=== PATIENT | male | born 1960 | race Caucasian/White ===

== ENCOUNTER 2018-12-15 00:08 | Emergency (ER) | payer MEDICAID ==
[~2018-12-15] VITALS: Ht 162.6 cm; Wt 122.0 kg
[2018-12-15 00:12] VITALS: BP 158/107
[2018-12-15] MEDS ORDERED: amox tr/potassium clavulanate 875/125mg TAB PO ONE (00:35)
[2018-12-15] MEDS ORDERED: HYDROcodone/acetaminophen 5mg/325mg tablet PO ONE (00:35)
[2018-12-15] MEDS ORDERED: TETanus/Pertussis (Acell)/Diphther VAC/PF (Tdap-Adult) 0.5ml syringe IM ONE (00:40)
[2018-12-15] MEDS ORDERED: ibuprofen tablet 400 MG TABLET PO STA (00:42)
[2018-12-15] MEDS ORDERED: LIDOcaine 1% w/epiNEPHrine 1:200,000 30ml vial IM ONE (01:55)
[2018-12-15] MEDS ORDERED: AMOX-422 PO (02:40)
== END 2018-12-15 03:06 | disposition home or self-care (01) ==
LOC: ER 00:09
DX: S61.512A Laceration without foreign body of left wrist, initial encounter (principal); Z79.2 Long term (current) use of antibiotics; W54.0XXA Bitten by dog, initial encounter; Y93.89 Activity, other specified; Y92.89 Other specified places as the place of occurrence of the external cause; Y99.8 Other external cause status
CPT/HCPCS: 12001; 73110; 90471; 99283

== ENCOUNTER 2019-05-10 10:12 | Emergency (ER) | payer MEDICAID ==
[~2019-05-10] VITALS: Ht 167.6 cm; Wt 118.0 kg
[2019-05-10 11:12] VITALS: BP 156/114
== END 2019-05-10 11:11 | disposition home or self-care (01) ==
LOC: ER 10:14
DX: R07.89 Other chest pain (principal); G89.29 Other chronic pain; M54.5 Low back pain
CPT/HCPCS: 93005; 99283

== ENCOUNTER 2021-02-14 09:04 | Inpatient (IN) | payer BC, MEDICAID ==
[2021-02-14] VITALS (10 sets, daily range): BP systolic 126–173; BP diastolic 55–93
[~2021-02-14] VITALS: Ht 165.1 cm; Wt 109.0 kg
[2021-02-14 10:20] LABS: BASOPHILS # (AUTO) 0.1 X10'3 (0-0.2); MEAN PLATELET VOLUME 6.7 FL (7.4-10.4); MONOCYTES # (AUTO) 0.5 X10'3 (0-0.9); NEUTROPHILS # (AUTO) 6.6 X10'3 (1.8-7.7)
[2021-02-14 10:21] LABS: BASOPHILS % (AUTO) 1.1 % (0-1); EOSINOPHILS % (AUTO) 0.4 % (0-6); LYMPHOCYTES # (AUTO) 1.1 X10'3 (1.1-4.8); LYMPHOCYTES % (AUTO) 12.9 % (21-51); MEAN CORPUSCULAR HEMOGLOBIN 15.8 PG (27.0-31.0); MEAN CORPUSCULAR VOLUME 56.5 FL (78-98); MONOCYTES % (AUTO) 5.9 % (2-12); NEUTROPHILS % (AUTO) 79.7 % (42-75); PLATELET COUNT 639 X10'3 (140-440); RED BLOOD COUNT 3.68 X10'6 (4.70-6.10); RED CELL DISTRIBUTION WIDTH 18.5 % (11.5-14.5); WHITE BLOOD COUNT 8.3 X10'3 (4.5-11.0)
[2021-02-14 10:31] LABS: ALANINE AMINOTRANSFERASE 21 U/L (12-78); ALBUMIN 3.8 G/DL (3.4-5.0); ALBUMIN/GLOBULIN RATIO 0.9 (1.1-1.5); ALKALINE PHOSPHATASE 107 IU/L (46-116); ANION GAP 11 (8-16); ASPARTATE AMINO TRANSFERASE 23 U/L (10-37); BILIRUBIN,TOTAL 0.6 MG/DL (0.1-1.0); BLOOD UREA NITROGEN 13 MG/DL (7-18); BUN/CREATININE RATIO 13.4 (5.4-32.0); CALCIUM 8.7 MG/DL (8.5-10.1); CHLORIDE 102 MMOL/L (99-107); CREATININE 0.97 MG/DL (0.60-1.10); GLUCOSE 124 MG/DL (70-104); POTASSIUM 4.1 MMOL/L (3.5-5.1); SODIUM 139 MMOL/L (135-145); eGFR 79 ML/MIN
[2021-02-14 10:36] LABS: HEMATOCRIT 20.8 % (42.0-52.0); HEMOGLOBIN 5.8 g/dl (14.0-17.9)
[2021-02-14 11:09] LABS: PARTIAL THROMBOPLASTIN TIME 24 SECONDS (22-32)
[2021-02-14 11:25] LABS: PLATELET ESTIMATE INCREASED
[2021-02-14 11:26] LABS: ANISOCYTOSIS 2+; HYPOCHROMASIA 3+; MICROCYTOSIS 3+
[2021-02-14 11:27] LABS: ELLIPTOCYTES 2+; POLYCHROMASIA 1+; SCHISTOCYTES 1+
[2021-02-14] MEDS ORDERED: pantoprazole 40 MG vial IV ONE (11:35)
[2021-02-14] MEDS ORDERED: mag hydrox/Alum hydrox/simeth 30ml oral suspension PO PRN (11:45)
[2021-02-14] MEDS ORDERED: morphine 2 MG/ML inj. syringe IV PRN (11:45)
[2021-02-14] MEDS ORDERED: acetaminophen 325mg tablet PO PRN (11:45)
[2021-02-14] MEDS ORDERED: magnesium hydroxide 30ml (MOM) UD suspension PO PRN (11:45)
[2021-02-14] MEDS ORDERED: ondansetron/PF 4mg/2ml inj IV PRN (11:45)
[2021-02-14] MEDS ORDERED: PEG 3350/Na sulf,bicarb,Cl/KCl oral sol 4 liter bottle PO ONE (11:55)
[2021-02-14] MEDS ORDERED: buprenorphine/naloxone 8MG-2MG SUBlingual film SL SCH (12:25)
[2021-02-14] MEDS ORDERED: buprenorphine/naloxone 8MG-2MG SUBlingual film SL ONE (12:25)
[2021-02-14] MEDS ORDERED: BUPR1FIL3 SL (12:59)
[2021-02-14] MEDS ORDERED: QUET100T34 PO (12:59)
[2021-02-14 13:02] LABS: HEMOGLOBIN A1C 6.1 % (4.5-6.2)
[2021-02-14] MEDS: buprenorphine/naloxone 8MG-2MG SUBlingual film SL SCH (13:45)
[2021-02-14 15:03] LABS: CLARITY,URINE CLEAR (Clear); COLOR,URINE STRAW (Yellow); UA COLLECTION TYPE NON-SPECIFIED
[2021-02-14 15:04] LABS: GLUCOSE, URINE NEGATIVE (Neg); KETONES,URINE NEGATIVE (Neg); LEUKOCYTE ESTERASE ,URINE NEGATIVE (Neg); NITRITES, URINE NEGATIVE (Neg); OCCULT BLOOD,URINE NEGATIVE (Neg); PROTEIN,URINE NEGATIVE (Neg); UROBILINOGEN,URINE 0.2 E.U/dL (0.2-1.0)
[2021-02-14] MEDS ORDERED: AMOX500C4 PO (15:22)
--- NOTE | 2021-02-14 15:54 | NUR ---
per [facility], PT NEEDS TO FINISH PREP BY 8-9 AM TOMORROW MORNING 02/15. PT WILL CONTINUE TO BE NPO BUT CAN HAVE A LITTLE BIT OF CLEAR LIQUIDS THIS EVENING.
[2021-02-14] MEDS: dextrose 5%-1/2 normal saline 1,000 ML IV SCH ×2 (16:59→23:39)
--- NOTE | 2021-02-14 17:12 | NUR ---
PATIENT'S LEG SHAKING, STATES "I DON'T KNOW WHY MY LEG IS SHAKING" PATIENT STATES HE MIGHT BE FEELING ANXIOUS AND WOULD BENEFIT FROM ANTI ANXIETY MEDICATION. PAGE SENT TO DR HURD.
[2021-02-14] MEDS ORDERED: LORazepam 0.5 MG tablet PO PRN (17:50)
[2021-02-14 18:02] LABS: URINE AMPHETAMINE SCREEN NEGATIVE (Neg); URINE BARBITUATE SCREEN NEGATIVE (Neg); URINE BENZODIAZEPINES SCREEN NEGATIVE (Neg); URINE CANNABINOID SCREEN NEGATIVE (Neg); URINE COCAINE SCREEN NEGATIVE (Neg); URINE METHADONE SCREEN NEGATIVE (Neg); URINE OPIATE SCREEN NEGATIVE (Neg); URINE PHENCYCLIDINE SCREEN NEGATIVE (Neg)
[2021-02-14 19:17] LABS: HEMATOCRIT 23.1 % (42.0-52.0); MEAN CORPUSCULAR HEMOGLOBIN 18.5 PG (27.0-31.0); MEAN CORPUSCULAR HGB CONC 30.2 g/dL (33.0-36.5); MEAN CORPUSCULAR VOLUME 61.3 FL (78-98); MEAN PLATELET VOLUME 6.7 FL (7.4-10.4); PLATELET COUNT 536 X10'3 (140-440); RED BLOOD COUNT 3.76 X10'6 (4.70-6.10); RED CELL DISTRIBUTION WIDTH 24.3 % (11.5-14.5); WHITE BLOOD COUNT 7.9 X10'3 (4.5-11.0)
[2021-02-14] MEDS: docusate sod 100mg capsule PO SCH (20:00)
[2021-02-14] MEDS: pantoprazole 40 MG vial IV SCH (22:14)
[2021-02-15] MEDS ORDERED: QUET50TA24 PO (00:56)
[2021-02-15] MEDS: QUEtiapine 25mg tablet PO PRN ×2 (01:21→20:02)
--- NOTE | 2021-02-15 02:31 | NUR ---
CLEANED PT COMMODE AND MEDICATED PT FOR SLEEP. PT IN STABLE CONDITION AND A&OX4 RESTING IN BED NOW.
[2021-02-15 02:55] LABS: BASOPHILS # (AUTO) 0.1 X10'3 (0-0.2); EOSINOPHILS # (AUTO) 0.1 X10'3 (0-0.9); EOSINOPHILS % (AUTO) 0.6 % (0-6); HEMATOCRIT 22.7 % (42.0-52.0); LYMPHOCYTES % (AUTO) 13.1 % (21-51); MEAN CORPUSCULAR HEMOGLOBIN 19.5 PG (27.0-31.0); MEAN CORPUSCULAR HGB CONC 30.6 g/dL (33.0-36.5); MEAN CORPUSCULAR VOLUME 63.8 FL (78-98); MEAN PLATELET VOLUME 6.5 FL (7.4-10.4); MONOCYTES # (AUTO) 0.6 X10'3 (0-0.9); NEUTROPHILS # (AUTO) 6.1 X10'3 (1.8-7.7); NEUTROPHILS % (AUTO) 77.3 % (42-75); PLATELET COUNT 447 X10'3 (140-440); RED BLOOD COUNT 3.56 X10'6 (4.70-6.10); RED CELL DISTRIBUTION WIDTH 28.4 % (11.5-14.5); WHITE BLOOD COUNT 7.9 X10'3 (4.5-11.0)
[2021-02-15 03:23] LABS: ALANINE AMINOTRANSFERASE 14 U/L (12-78); ALBUMIN 3.1 G/DL (3.4-5.0); ALBUMIN/GLOBULIN RATIO 0.9 (1.1-1.5); ALKALINE PHOSPHATASE 88 IU/L (46-116); ANION GAP 8 (8-16); ASPARTATE AMINO TRANSFERASE 16 U/L (10-37); BILIRUBIN,TOTAL 0.7 MG/DL (0.1-1.0); BLOOD UREA NITROGEN 10 MG/DL (7-18); BUN/CREATININE RATIO 10.8 (5.4-32.0); CHLORIDE 107 MMOL/L (99-107); CHOL/HDL RATIO 4.1 (0.00-4.99); CHOLESTEROL 159 MG/DL (0-200); CREATININE 0.93 MG/DL (0.60-1.10); FERRITIN 4 NG/ML (26-388); GLUCOSE 119 MG/DL (70-104); HDL CHOLESTEROL 39 MG/DL (35-60); LDL CHOLESTEROL 101 MG/DL (50-100); POTASSIUM 3.6 MMOL/L (3.5-5.1); SODIUM 143 MMOL/L (135-145); TOTAL CARBON DIOXIDE 27.8 MMOL/L (24-32); TOTAL PROTEIN 6.4 G/DL (6.4-8.2); TRIGLYCERIDES 105 MG/DL (20-135); eGFR 83 ML/MIN
[2021-02-15 03:42] LABS: % IRON SATURATION 5 % (11-46); IRON 19 UG/DL (53-167); TOTAL IRON BINDING CAPACITY 405 UG/DL (259-388)
[2021-02-15 05:52] LABS: PLATELET ESTIMATE INCREASED
[2021-02-15 05:53] LABS: ANISOCYTOSIS 3+; ELLIPTOCYTES 2+; MICROCYTOSIS 2+
[2021-02-15 05:54] LABS: GIANT PLATELET FEW; HYPOCHROMASIA 1+; TEAR DROP CELLS FEW
[2021-02-15 05:55] LABS: SCHISTOCYTES FEW
[2021-02-15] MEDS: docusate sod 100mg capsule PO SCH ×2 (08:00→20:00)
[2021-02-15] MEDS: dextrose 5%-1/2 normal saline 1,000 ML IV SCH ×2 (08:44→17:53)
--- NOTE | 2021-02-15 08:56 | NUR ---
call from [facility] states patient to get colonoscopy at approx 1030 this AM.
[2021-02-15 09:49] VITALS: BP 144/89
[2021-02-15] MEDS: pantoprazole 40 MG vial IV SCH ×3 (09:49→20:02)
[2021-02-15] MEDS: buprenorphine/naloxone 8MG-2MG SUBlingual film SL SCH ×2 (09:51→12:12)
--- NOTE | 2021-02-15 09:51 | NUR ---
patient to GI lab at this time via [facility]. Awake alert, no signs of distress noted.
[2021-02-15] MEDS ORDERED: fentaNYL/PF 50MCG/1 ML 2ML syringe ONE (09:56)
[2021-02-15] MEDS ORDERED: MIDAZolam 1 MG/ML 5ML VIAL ONE (09:57)
[2021-02-15 10:55] VITALS: BP 139/61
[2021-02-15 11:05] VITALS: BP 145/95
[2021-02-15 11:15] VITALS: BP 153/87
[2021-02-15 11:25] VITALS: BP 149/81
--- NOTE | 2021-02-15 11:50 | NUR ---
PATIENT BACK FROM GI LAB AT THIS TIME. REQUESTING SUBOXONE (SEE EMAR). ALL SAFETY MEASURES IN PLACE, VSS.
[2021-02-15] MEDS ORDERED: PEG 3350/Na sulf,bicarb,Cl/KCl oral sol 4 liter bottle PO ONE (11:55)
--- NOTE | 2021-02-15 23:06 | NUR ---
notified PAGER ID: [phone] MESSAGE: [phone] Zan Zepeda: pt is complaining of headache 12/21 Seroquel &Tylenol both not effective. hx of severe anxiety. Requesting something for sleep and pain. thank you Desiree [phone]
[2021-02-15] MEDS ORDERED: traMADol 50MG tablet PO ONE (23:10)
[2021-02-16] VITALS (14 sets, daily range): BP systolic 95–176; BP diastolic 41–80
--- NOTE | 2021-02-16 02:51 | NUR ---
Notified PAGER ID: [phone] MESSAGE: [phone] Zan Zepeda: pt stated that he is a [place] addict takes suboxone for his addiction and thinks he is going through withdrawals. states if he could get a dose of suboxone. systolic 175. thanks Desiree [phone] Addendum: 02/16/21 at 0303 by Desiree Bui RN ordered atenolol po for BP 175 however cannot change current time of suboxone due to pt was given it yesterday.
[2021-02-16] MEDS: atenolol 25mg tablet PO SCH ×2 (04:00→12:24)
[2021-02-16] MEDS: dextrose 5%-1/2 normal saline 1,000 ML IV SCH ×2 (04:02→13:45)
--- NOTE | 2021-02-16 04:58 | NUR ---
Pt stated to primary nurse that he feels hes going through Suboxone withdrawals. MD Serrano was notified Spoke with MD Serrano, stated she would not ordered any narcotics or change Suboxone medication this shift. MD Serrano stated day shift will need to reevaluate wether they want to change the frequency of his medication. Pts bp @0200 vitals was syst. of 170s received daily PO Atenolol order 25mg with hold parameters. Medication administered per md orders.
[2021-02-16 06:07] LABS: BASOPHILS # (AUTO) 0.1 X10'3 (0-0.2); BASOPHILS % (AUTO) 0.9 % (0-1); EOSINOPHILS # (AUTO) 0.1 X10'3 (0-0.9); EOSINOPHILS % (AUTO) 0.8 % (0-6); HEMOGLOBIN 7.2 g/dl (14.0-17.9); LYMPHOCYTES # (AUTO) 0.8 X10'3 (1.1-4.8); LYMPHOCYTES % (AUTO) 11.7 % (21-51); MEAN CORPUSCULAR HEMOGLOBIN 19.3 PG (27.0-31.0); MEAN CORPUSCULAR HGB CONC 30.1 g/dL (33.0-36.5); MEAN CORPUSCULAR VOLUME 64.1 FL (78-98); MEAN PLATELET VOLUME 8.4 FL (7.4-10.4); MONOCYTES # (AUTO) 0.6 X10'3 (0-0.9); MONOCYTES % (AUTO) 9.3 % (2-12); NEUTROPHILS # (AUTO) 5.4 X10'3 (1.8-7.7); NEUTROPHILS % (AUTO) 77.3 % (42-75); PLATELET COUNT 385 X10'3 (140-440); RED BLOOD COUNT 3.74 X10'6 (4.70-6.10); RED CELL DISTRIBUTION WIDTH 29.2 % (11.5-14.5)
[2021-02-16 06:21] LABS: ALANINE AMINOTRANSFERASE 18 U/L (12-78); ALBUMIN 3.3 G/DL (3.4-5.0); ALKALINE PHOSPHATASE 94 IU/L (46-116); ANION GAP 8 (8-16); ASPARTATE AMINO TRANSFERASE 12 U/L (10-37); BILIRUBIN,TOTAL 0.7 MG/DL (0.1-1.0); BLOOD UREA NITROGEN 4 MG/DL (7-18); BUN/CREATININE RATIO 4.2 (5.4-32.0); CALCIUM 8.5 MG/DL (8.5-10.1); CHLORIDE 107 MMOL/L (99-107); CREATININE 0.95 MG/DL (0.60-1.10); GLUCOSE 110 MG/DL (70-104); POTASSIUM 3.7 MMOL/L (3.5-5.1); SODIUM 141 MMOL/L (135-145); TOTAL CARBON DIOXIDE 26.1 MMOL/L (24-32); TOTAL PROTEIN 6.6 G/DL (6.4-8.2); eGFR 81 ML/MIN
--- NOTE | 2021-02-16 06:50 | NUR ---
Problems reprioritized. Patient report given, questions answered & plan of care reviewed with
--- NOTE | 2021-02-16 07:30 | NUR ---
Patient in room PCU 3023N. I have received report from KARLY PAULINO and had the opportunity to ask questions and assume patient care.
[2021-02-16] MEDS: pantoprazole 40 MG vial IV SCH (08:00)
[2021-02-16] MEDS: docusate sod 100mg capsule PO SCH (08:00)
[2021-02-16] MEDS: buprenorphine/naloxone 8MG-2MG SUBlingual film SL SCH (09:05)
[2021-02-16 09:17] LABS: ANISOCYTOSIS 3+; HYPOCHROMASIA 2+; MICROCYTOSIS 2+; PLATELET ESTIMATE NORMAL
[2021-02-16 09:18] LABS: ELLIPTOCYTES 1+; POLYCHROMASIA 1+; STOMATOCYTES FEW
[2021-02-16] MEDS ORDERED: aspirin/acetaminophen/caffeine tablet PO ONE (12:05)
[2021-02-16] MEDS ORDERED: fentaNYL/PF 50MCG/1 ML 2ML syringe ONE (12:23)
[2021-02-16] MEDS ORDERED: MIDAZolam 1 MG/ML 5ML VIAL ONE (12:23)
[2021-02-16] MEDS ORDERED: LIDOcaine Viscous 15ml cup ONE (12:34)
[2021-02-16] MEDS ORDERED: FERR-28 PO (16:13)
--- NOTE | 2021-02-16 18:17 | NUR ---
PATIENT STABLE AND APPROPRIATE FOR DISCHARGE, IV TAKEN OUT, TELE REMOVED, EDUCATION GIVEN, NEW MEDS E-SCRIPTED TO NEW PHARMACY, ALL BELONGINGS SENT WITH PATIENT, PATIENT WALKED TO LOBBY TO AN AWAITING CAR WHERE FAMILY MEMBER WILL TAKE PATIENT HOME
== END 2021-02-16 18:17 | disposition home or self-care (01) | DRG 394 ==
LOC: ER 09:04 → ED HOLD 11:53 → PCU 3S 02-15 22:25
PROVIDERS: ADMIT Internal Medicine; ATTEND Internal Medicine
PROC: 30233N1 Transfusion of Nonautologous Red Blood Cells into Peripheral Vein, Percutaneous Approach (ICD-10-PCS; 2021-02-14)
PROC: 0DJD8ZZ Inspection of Lower Intestinal Tract, Via Natural or Artificial Opening Endoscopic (ICD-10-PCS; principal; 2021-02-15)
PROC: 0DBL8ZZ Excision of Transverse Colon, Via Natural or Artificial Opening Endoscopic (ICD-10-PCS; 2021-02-16)
DX: K64.8 Other hemorrhoids (principal); D62 Acute posthemorrhagic anemia; Z68.41 Body mass index [BMI] 40.0-44.9, adult; K92.2 Gastrointestinal hemorrhage, unspecified; E66.01 Morbid (severe) obesity due to excess calories; K63.5 Polyp of colon; M19.90 Unspecified osteoarthritis, unspecified site; G89.29 Other chronic pain; I10 Essential (primary) hypertension; F41.9 Anxiety disorder, unspecified; M54.9 Dorsalgia, unspecified; Z79.899 Other long term (current) drug therapy; Z12.11 Encounter for screening for malignant neoplasm of colon
CPT/HCPCS: 36415; 36430; 45330; 45385; 71045; 80053; 80061; 80305; 81003; 82607; 82728; 83036; 83540; 83550; 83880; 84484; 85008; 85025; 85027; 85610; 85730; 86885; 86900; 86901; 86920; 87081; 87635; 93005; 93306; 99152; 99285; A4620; C1773; C9113; C9803; G0378; J2250; J2270; J3010; J7040; P9016

== ENCOUNTER 2022-02-18 07:08 | Emergency (ER) | payer BC, MEDICAID ==
[~2022-02-18] VITALS: Ht 162.6 cm; Wt 117.3 kg
[~2022-02-18 07:08] MED LIST: AMOX500C4 PO; BUPR1FIL3 SL; FERR-28 PO; QUET100T34 PO; QUET50TA24 PO
[2022-02-18 08:13] LABS: CLARITY,URINE CLEAR (Clear); GLUCOSE, URINE NEGATIVE (Neg); KETONES,URINE NEGATIVE (Neg); LEUKOCYTE ESTERASE ,URINE NEGATIVE (Neg); NITRITES, URINE NEGATIVE (Neg); OCCULT BLOOD,URINE NEGATIVE (Neg); PH,URINE 6.5 (4.8-8.0); PROTEIN,URINE NEGATIVE (Neg); UROBILINOGEN,URINE 0.2 E.U/dL (0.2-1.0)
[2022-02-18 08:15] LABS: COLOR,URINE STRAW (Yellow); UA COLLECTION TYPE VOIDED
[2022-02-18 08:29] LABS: BASOPHILS # (AUTO) 0.1 X10'3 (0-0.2); BASOPHILS % (AUTO) 1.1 % (0-1); EOSINOPHILS # (AUTO) 0.2 X10'3 (0-0.9); EOSINOPHILS % (AUTO) 3.7 % (0-6); HEMATOCRIT 37.6 % (42.0-52.0); HEMOGLOBIN 12.8 g/dl (14.0-17.9); LYMPHOCYTES # (AUTO) 1.7 X10'3 (1.1-4.8); LYMPHOCYTES % (AUTO) 25.9 % (21-51); MEAN CORPUSCULAR HEMOGLOBIN 25.7 PG (27.0-31.0); MEAN CORPUSCULAR HGB CONC 33.9 g/dL (33.0-36.5); MEAN CORPUSCULAR VOLUME 75.8 FL (78-98); MEAN PLATELET VOLUME 7.4 FL (7.4-10.4); MONOCYTES # (AUTO) 0.6 X10'3 (0-0.9); MONOCYTES % (AUTO) 8.7 % (2-12); NEUTROPHILS # (AUTO) 3.9 X10'3 (1.8-7.7); NEUTROPHILS % (AUTO) 60.6 % (42-75); PLATELET COUNT 346 X10'3 (140-440); RED BLOOD COUNT 4.97 X10'6 (4.70-6.10); RED CELL DISTRIBUTION WIDTH 16.9 % (11.5-14.5); WHITE BLOOD COUNT 6.5 X10'3 (4.5-11.0)
[2022-02-18 08:40] LABS: ALANINE AMINOTRANSFERASE 24 U/L (12-78); ALBUMIN 3.8 G/DL (3.4-5.0); ALKALINE PHOSPHATASE 116 IU/L (46-116); ANION GAP 9 (8-16); ASPARTATE AMINO TRANSFERASE 21 U/L (10-37); BILIRUBIN,TOTAL 0.2 MG/DL (0.1-1.0); BLOOD UREA NITROGEN 9 MG/DL (7-18); BUN/CREATININE RATIO 7.7 (5.4-32.0); CALCIUM 8.9 MG/DL (8.5-10.1); CHLORIDE 107 MMOL/L (99-107); CREATININE 1.17 MG/DL (0.60-1.10); GLUCOSE 131 MG/DL (70-104); POTASSIUM 4.1 MMOL/L (3.5-5.1); SODIUM 141 MMOL/L (135-145); TOTAL CARBON DIOXIDE 25.5 MMOL/L (24-32); TOTAL PROTEIN 7.5 G/DL (6.4-8.2); eGFR 64 ML/MIN
[2022-02-18 09:28] VITALS: BP 186/106
[2022-02-18] MEDS ORDERED: normal saline 1000ML IV soln IVB ONE (09:40)
[2022-02-18] MEDS ORDERED: LORazepam 1 MG tablet PO ONE (09:40)
--- NOTE | 2022-02-18 10:45 | NUR ---
pt reports that "the medicine is not doing anything" and he "usually gets it IV" referring to ativan. informed pt that he will not be getting IV ativan at this time.
--- NOTE | 2022-02-18 11:10 | NUR ---
pt asking to be written off of jury duty on 02/28. informed pt the provider will not be writing him off jury duty at this time. pt may return to ed if he believes his withdraw symptoms are bad enough to affect jury duty.
== END 2022-02-18 11:24 | disposition home or self-care (01) ==
LOC: ER 07:08
DX: F11.23 Opioid dependence with withdrawal (principal); D64.9 Anemia, unspecified; I10 Essential (primary) hypertension; G89.29 Other chronic pain; M54.9 Dorsalgia, unspecified; Z79.2 Long term (current) use of antibiotics; Z79.899 Other long term (current) drug therapy
CPT/HCPCS: 36415; 80053; 81003; 85025; 93005; 99284; J7030

== ENCOUNTER 2024-04-29 13:08 | Emergency (ER) | payer MEDICARE, MEDICAID ==
[~2024-04-29] VITALS: Ht 162.6 cm; Wt 111.8 kg
[~2024-04-29 13:08] MED LIST changes: -AMOX500C4 PO; -BUPR1FIL3 SL; +BUPR2TAB11 SL; +DOCU-148 PO; -FERR-28 PO; +HYDR-3972 PO; -QUET100T34 PO; -QUET50TA24 PO
[2024-04-29 14:29] LABS: STREP A SCREEN NEGATIVE (Neg)
[2024-04-29] MEDS ORDERED: HYDR50TA65 PO (15:33)
[2024-04-29 15:43] VITALS: BP 132/78; PULSE 86; RESP 16; TEMP 98.6; O2SAT 99
== END 2024-04-29 15:47 | disposition home or self-care (01) ==
LOC: ER 13:08
DX: J39.2 Other diseases of pharynx (principal); Z20.822 Contact with and (suspected) exposure to COVID-19; I10 Essential (primary) hypertension; G89.29 Other chronic pain; M19.90 Unspecified osteoarthritis, unspecified site; Z88.5 Allergy status to narcotic agent; Z79.899 Other long term (current) drug therapy; Z90.49 Acquired absence of other specified parts of digestive tract
CPT/HCPCS: 36415; 87081; 87811; 87880; 99283